=== PATIENT | female | born 1945 | race African-American/Black ===

== ENCOUNTER 2016-11-21 19:05 | Emergency (ER) | payer OTHER ==
[~2016-11-21] VITALS: Ht 157.5 cm; Wt 77.1 kg
--- NOTE | ~2016-11-21 | EKG ---
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 : 1945 Requested By: Mirna Baird Order Number: [id number] MD: Benjamín Roberts Measurements Intervals [place] Rate: 61 P: 35 [place]: 187 QRS: 18 QRSD: 88 T: 69 QT: 437 QTc: 441 Interpretive Statements Sinus rhythm Nonspecific T wave abnormality Compared to ECG 06/19/2016 03:42:26 No significant change was found Electronically Signed On 11-22-2016 8:09:31 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
[~2016-11-21 19:05] MED LIST: AMBIEN 10 MG TA10 MG PO; AMLODIPINE BESY10 MG PO; ASPIRIN EC81 M1 PO; ATIVAN0.5 M1 PO; ATIVAN0.5 MG PO; ATIVAN1 MG; ATIVAN1 MG PO; BYSTOLIC10 MG PO; CARAFATE 1 GM TA1 G1 PO; CARAFATE 1 GM TA1 GM PO; CARVEDILOL12.5 MG PO; CARVEDILOL25 MG PO; CLONIDINE HCL0.2 M2; CLONIDINE HCL0.2 M2 PO; CLONIDINE0.1 PO; GABAPENTIN100 MG PO; GLIPIZIDE ER10 MG; GLIPIZIDE ER10 MG PO; GLUCOPHAGE XR500 MG PO; GLUCOPHAGE500 MG; HUMALOG100 UNIT/1; INSULIN; IRON325 PO; LANTUS SUBQ; LIDOCAINE VISC100 M1 PO; LIPITOR20 MG PO; LIPITOR40 MG PO; LISINOPRIL20 MG PO; LISINOPRIL40 MG PO; LORAZEPAM 1 MG T1 M1 PO; LORAZEPAM 1 MG T1 MG PO; MEDROL DOSPAK21 TAB PO; METFORMIN; NAPROSYN250 MG PO; NEXIUM40 MG; NORCO 5-325 TA1 EACH PO; NORVASC2.5 MG PO; NOVOLOG100 UNIT/1; NOVOLOG100 UNIT/1 SQ; ONDANSETRON HCL4 M2 PO; PEPCID40 MG PO; PERCOCET 5-3251 EACH PO; PRILOSEC20 MG PO; PRILOSEC40 MG PO; PROTONIX40 M1 PO; PROTONIX40 MG PO; ULTRAM 50MG TAB50 MG PO; VITAMIN D32000 UNI1 PO; VITAMIN D400 UNI1 PO; XANAX 0.25 MG0.25 MG PO; XANAX 0.5 MG0.5 M1 PO; XANAX1 MG PO; ZANTAC 150MG T150 M1 PO; ZOFRAN ODT4 MG PO
[2016-11-21] MEDS ORDERED: PEPCID20 MG PO (19:51)
[2016-11-21] MEDS ORDERED: CARAFATE 1 GM TA1 G1 PO (19:51)
[2016-11-21] MEDS ORDERED: NEURONTIN 300300 M1 PO (19:51)
== END 2016-11-21 20:35 | disposition home or self-care (01) ==
LOC: ER 19:05
DX: E11.40 Type 2 diabetes mellitus with diabetic neuropathy, unspecified (principal); G89.29 Other chronic pain; R12 Heartburn; I10 Essential (primary) hypertension; Z90.49 Acquired absence of other specified parts of digestive tract; Z88.5 Allergy status to narcotic agent; Z91.013 Allergy to seafood

== ENCOUNTER 2017-02-12 20:54 | Emergency (ER) | payer OTHER ==
[~2017-02-12] VITALS: Ht 154.9 cm; Wt 79.4 kg
--- NOTE | ~2017-02-12 | EKG ---
[address] [address] ELECTROCARDIOGRAM REPORT Name: MOLLY RODRIGUEZ Room #: DEP [facility]#: [id number] Admission: 02/12/17 Attend Phys: Discharge: 02/12/17 Date of : 41 Report #: [id number] THIS REPORT FOR: //name// [facility] ED Test Date: 2017-02-12 Test Time: 21:53:29 Pat Name: MOLLY RODRIGUEZ Department: Room: Gender: F [place]: porfirio : 1945 Requested By: Clarita Hayes Order Number: [id number] MD: Meng Kelley Measurements Intervals [place] Rate: 78 P: -2 [place]: 181 QRS: 7 QRSD: 97 T: 45 QT: 310 QTc: 354 Interpretive Statements Sinus rhythm Borderline T abnormalities, lateral leads Compared to ECG 11/21/2016 19:37:39 No significant changes Electronically Signed On 02-13-2017 20:12:43 CDT by Meng Kelley [email or web address] <ELECTRONICALLY SIGNED> By: Meng Kelley MD 02/13/172011 52 52 Meng Kelley MD /MARIO
[~2017-02-12 20:54] MED LIST changes: +NEURONTIN 300300 M1 PO; +PEPCID20 MG PO
[2017-02-12 22:22] LABS: ABSOLUTE NEUTROPHILS 4.3 thou/uL (1.4-8.2); BASOPHILS 1.6 % (0.0-2.0); HEMATOCRIT 37.6 % (37.0-47.0); HEMOGLOBIN 12.5 gm/dL (12.0-15.0); LYMPHOCYTES 29.8 % (24.0-44.0); MCH 27.6 pg (26.0-34.0); MCHC 33.3 g/dL (28.0-37.0); MCV 82.8 fL (80.0-100.0); PLATELET COUNT 204 thou/uL (150-400); POLYS 55.6 % (36.0-66.0); RBC 4.54 mil/uL (4.20-5.00); RDW 15.2 % (10.5-14.5); WBC 7.8 thou/uL (4.0-11.0)
[2017-02-12 22:23] LABS: MANUAL DIFF NO
[2017-02-12 22:32] LABS: ANION GAP 11 mmol/L (7-16); BUN 15 mg/dL (7-18); CALCIUM 9.6 mg/dL (8.5-10.1); CHLORIDE 103 mmol/L (98-107); CO2 22 mmol/L (21-32); CREATININE 1.1 mg/dL (0.6-1.3); GLUCOSE 232 mg/dL (70-99); POTASSIUM 4.1 mmol/L (3.5-5.1); SODIUM 136 mmol/L (136-145)
[2017-02-12 22:36] LABS: ALBUMIN 3.8 g/dL (3.4-5.0); ALKALINE PHOSPHATASE 91 U/L (46-116); DIRECT BILIRUBIN < 0.1 mg/dL (<0.1-0.3); SGOT 20 U/L (15-37); SGPT 26 U/L (30-65); TOTAL BILIRUBIN 0.4 mg/dL (<0.1-1.0); TOTAL PROTEIN 7.7 g/dL (6.4-8.2)
[2017-02-12] MEDS ORDERED: PRILOSEC OTC20 MG PO (23:14)
== END 2017-02-12 23:24 | disposition home or self-care (01) ==
LOC: ER 20:54
PROVIDERS: Emergency Medicine
DX: K29.70 Gastritis, unspecified, without bleeding (principal); I10 Essential (primary) hypertension; E11.9 Type 2 diabetes mellitus without complications; E11.40 Type 2 diabetes mellitus with diabetic neuropathy, unspecified; Z90.49 Acquired absence of other specified parts of digestive tract; Z79.4 Long term (current) use of insulin; Z88.8 Allergy status to other drugs, medicaments and biological substances; Z88.5 Allergy status to narcotic agent; Z91.013 Allergy to seafood; Z87.891 Personal history of nicotine dependence

== ENCOUNTER 2017-06-16 22:47 | Emergency (ER) | payer OTHER ==
[~2017-06-16] VITALS: Ht 154.9 cm; Wt 78.9 kg
[~2017-06-16 22:47] MED LIST changes: +PRILOSEC OTC20 MG PO
[2017-06-16] MEDS ORDERED: PROTONIX40 M1 PO (22:57)
[2017-06-17] MEDS ORDERED: ATIVAN1 M1 PO (00:09)
[2017-06-17] MEDS ORDERED: PROTONIX40 M3 PO (00:09)
== END 2017-06-17 00:24 | disposition home or self-care (01) ==
LOC: ER 22:47
DX: Z91.19 Patient's noncompliance with other medical treatment and regimen (principal); K21.9 Gastro-esophageal reflux disease without esophagitis; R07.89 Other chest pain; I10 Essential (primary) hypertension; E11.9 Type 2 diabetes mellitus without complications; E11.40 Type 2 diabetes mellitus with diabetic neuropathy, unspecified; Z79.4 Long term (current) use of insulin; Z90.49 Acquired absence of other specified parts of digestive tract; Z98.890 Other specified postprocedural states; Z91.013 Allergy to seafood; Z88.5 Allergy status to narcotic agent; Z88.8 Allergy status to other drugs, medicaments and biological substances; Z87.891 Personal history of nicotine dependence

== ENCOUNTER 2017-12-17 01:10 | Emergency (ER) | payer OTHER ==
[~2017-12-17] VITALS: Ht 154.9 cm; Wt 90.7 kg
[~2017-12-17 01:10] MED LIST changes: +ATIVAN1 M1 PO; +PROTONIX40 M3 PO
[2017-12-17] MEDS ORDERED: ATIVAN1 MG PO (02:08)
[2017-12-17] MEDS ORDERED: NEURONTIN 300300 M1 PO (02:08)
[2017-12-17 03:12] VITALS: BP 119/70
== END 2017-12-17 03:10 | disposition home or self-care (01) ==
LOC: ER 01:10
DX: F41.9 Anxiety disorder, unspecified (principal); E11.40 Type 2 diabetes mellitus with diabetic neuropathy, unspecified; I10 Essential (primary) hypertension; Z87.891 Personal history of nicotine dependence; Z88.8 Allergy status to other drugs, medicaments and biological substances; Z88.6 Allergy status to analgesic agent; Z91.013 Allergy to seafood; Z79.4 Long term (current) use of insulin; Z90.49 Acquired absence of other specified parts of digestive tract

== ENCOUNTER 2018-04-05 17:46 | Emergency (ER) | payer OTHER ==
[~2018-04-05] VITALS: Ht 157.5 cm; Wt 81.7 kg
--- NOTE | ~2018-04-05 | EKG ---
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
[2018-04-05 18:20] LABS: ABSOLUTE NEUTROPHILS 3.6 thou/uL (1.4-8.2); EOSINOPHILS 4.4 % (0.0-3.0); HEMATOCRIT 39.7 % (37.0-47.0); LYMPHOCYTES 33.7 % (24.0-44.0); MCH 27.5 pg (26.0-34.0); MCHC 32.7 g/dL (28.0-37.0); MCV 84.1 fL (80.0-100.0); MONOCYTES 8.1 % (1.0-8.0); PLATELET COUNT 254 thou/uL (150-400); POLYS 51.8 % (36.0-66.0); RBC 4.72 mil/uL (4.20-5.00); RDW 14.9 % (10.5-14.5)
[2018-04-05] MEDS ORDERED: VITAMIN D2000 UNIT PO (18:22)
[2018-04-05 18:28] LABS: ANION GAP 13 mmol/L (7-16); BUN 11 mg/dL (7-18); CALCIUM 10.1 mg/dL (8.5-10.1); CHLORIDE 102 mmol/L (98-107); CO2 23 mmol/L (21-32); GLUCOSE 192 mg/dL (74-106); POTASSIUM 3.5 mmol/L (3.5-5.1); SODIUM 138 mmol/L (136-145)
[2018-04-05 18:36] LABS: ALBUMIN 4.3 g/dL (3.4-5.0); SGOT 22 U/L (15-37); SGPT 32 U/L (30-65); TOTAL BILIRUBIN 0.4 mg/dL (<0.1-1.0); TOTAL PROTEIN 8.5 g/dL (6.4-8.2); TROPONIN-I < 0.04 ng/mL (<0.06)
[2018-04-05 18:45] LABS: URINE BILIRUBIN NEGATIVE (Negative); URINE BLOOD NEGATIVE (Negative); URINE CLARITY SL CLOUDY; URINE COLOR YELLOW; URINE GLUCOSE-RANDOM* NEGATIVE (Negative); URINE KETONES NEGATIVE (Negative); URINE NITRITE-REFLEX NEGATIVE (Negative); URINE PROTEIN (DIPSTICK) NEGATIVE (Negative); URINE SPECIFIC GRAVITY <= 1.005 (1.005-1.035); URINE UROBILINOGEN 0.2 E.U./dl (0.2-1.0)
[2018-04-05 18:47] LABS: URINE LEUKOCYTES-REFLEX 1+ (Negative)
[2018-04-05 19:14] LABS: CASTS None Seen /LPF (None Seen); CRYSTALS None Seen /LPF (None Seen); SQUAMOUS >10 Many /LPF (0-3); URINE RBC 0-2 Rare /HPF (0-2); URINE WBC-REFLEX 0-5 Rare /HPF (0-5)
[2018-04-05 19:15] LABS: BACTERIA-REFLEX 1-9 Few /HPF (None Seen)
== END 2018-04-05 19:57 | disposition home or self-care (01) ==
LOC: ER 17:46
PROVIDERS: Physician Assistant
DX: E86.0 Dehydration (principal); F41.9 Anxiety disorder, unspecified; R53.1 Weakness; I10 Essential (primary) hypertension; E11.9 Type 2 diabetes mellitus without complications; Z90.49 Acquired absence of other specified parts of digestive tract; Z87.891 Personal history of nicotine dependence; Z88.5 Allergy status to narcotic agent; Z88.8 Allergy status to other drugs, medicaments and biological substances

== ENCOUNTER 2018-04-13 09:54 | Emergency (ER) | payer OTHER ==
[~2018-04-13] VITALS: Ht 154.9 cm; Wt 81.7 kg
--- NOTE | ~2018-04-13 | EKG ---
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 04/14/18 0737 103 103 Benjamín Roberts MD, FAC /EPI
[~2018-04-13 09:54] MED LIST changes: +VITAMIN D2000 UNIT PO
[2018-04-13] MEDS ORDERED: PROTONIX40 M2 PO (11:02)
== END 2018-04-13 11:18 | disposition home or self-care (01) ==
LOC: ER 09:54
DX: K21.9 Gastro-esophageal reflux disease without esophagitis (principal); I10 Essential (primary) hypertension; E11.9 Type 2 diabetes mellitus without complications; Z90.49 Acquired absence of other specified parts of digestive tract; Z87.891 Personal history of nicotine dependence; Z88.5 Allergy status to narcotic agent

== ENCOUNTER 2018-05-05 11:33 | Emergency (ER) | payer OTHER ==
[~2018-05-05] VITALS: Ht 154.9 cm; Wt 77.1 kg
--- NOTE | ~2018-05-05 | EKG ---
[address] [employer] [address] ELECTROCARDIOGRAM REPORT Name: MOLLY RODRIGUEZ Room #: DEP [facility]#: [id number] Admission: 05/05/18 Attend Phys: Discharge: 05/05/18 Date of : 41 Report #: [id number] THIS REPORT FOR: //name// 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: : 1945 Requested By: Stacey Webster Order Number: [id number] MD: Benjamín Roberts Measurements Intervals [place] Rate: 77 P: 6 [place]: 184 QRS: 3 QRSD: 95 T: 28 QT: 374 QTc: 424 Interpretive Statements Sinus rhythm Borderline T wave abnormalities Compared to ECG 04/13/2018 10:32:40 Sinus bradycardia no longer present Electronically Signed On 05-05-2018 16:33:39 CDT by Benjamín Roberts [email or web address] <ELECTRONICALLY SIGNED> By: Benjamín Roberts MD, [facility] 05/05/18 1633 1143 1143 Benjamín Roberts MD, FACC /EPI
[~2018-05-05 11:33] MED LIST changes: +PROTONIX40 M2 PO
[2018-05-05 12:34] LABS: ABSOLUTE NEUTROPHILS 3.7 thou/uL (1.4-8.2); BASOPHILS 1.1 % (0.0-2.0); EOSINOPHILS 2.9 % (0.0-3.0); HEMATOCRIT 40.1 % (37.0-47.0); LYMPHOCYTES 35.7 % (24.0-44.0); MCH 27.3 pg (26.0-34.0); MCHC 32.4 g/dL (28.0-37.0); MCV 84.3 fL (80.0-100.0); MONOCYTES 7.2 % (1.0-8.0); PLATELET COUNT 255 thou/uL (150-400); POLYS 53.1 % (36.0-66.0); RBC 4.76 mil/uL (4.20-5.00); RDW 14.4 % (10.5-14.5)
[2018-05-05 12:42] LABS: ANION GAP 11 mmol/L (7-16); BUN 5 mg/dL (7-18); CALCIUM 9.9 mg/dL (8.5-10.1); CHLORIDE 105 mmol/L (98-107); CO2 23 mmol/L (21-32); CREATININE 0.7 mg/dL (0.6-1.0); GLUCOSE 129 mg/dL (74-106); POTASSIUM 3.4 mmol/L (3.5-5.1); SODIUM 139 mmol/L (136-145)
[2018-05-05 12:50] LABS: LIPASE 157 U/L (73-393); SGOT 25 U/L (15-37); SGPT 32 U/L (30-65); TOTAL BILIRUBIN 0.3 mg/dL (<0.1-1.0); TROPONIN-I <0.06 ng/mL (<0.06)
[2018-05-05] MEDS ORDERED: CARAFATE 1 GM TA1 G1 PO (13:32)
== END 2018-05-05 13:53 | disposition home or self-care (01) ==
LOC: ER 11:33
PROVIDERS: Nurse Practitioner Family
DX: R12 Heartburn (principal); F41.9 Anxiety disorder, unspecified; I10 Essential (primary) hypertension; E11.9 Type 2 diabetes mellitus without complications; K21.9 Gastro-esophageal reflux disease without esophagitis; Z90.49 Acquired absence of other specified parts of digestive tract; Z88.5 Allergy status to narcotic agent

== ENCOUNTER 2018-05-18 13:15 | Emergency (ER) | payer OTHER ==
[~2018-05-18] VITALS: Ht 154.9 cm; Wt 78.0 kg
--- NOTE | ~2018-05-18 | EKG ---
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: : 1945 Requested By: Pineda Donovan Order Number: [id number] MD: Benjamín Roberts Measurements Intervals [place] Rate: 77 P: 4 [place]: 176 QRS: 2 QRSD: 88 T: 46 QT: 386 QTc: 437 Interpretive Statements Sinus rhythm Nonspecific T wave abnormality Compared to ECG 05/05/2018 11:43:43 No significant change was found Electronically Signed On 05-18-2018 17:21:54 CDT by Benjamín Roberts [email or web address] <ELECTRONICALLY SIGNED> By: Benjamín Roberts MD, [facility] 05/18/18 1721 1339 1339 Benjamín Roberts MD, FACC /EPI
[2018-05-18 13:40] LABS: ABSOLUTE NEUTROPHILS 4.3 thou/uL (1.4-8.2); BASOPHILS 1.3 % (0.0-2.0); EOSINOPHILS 2.3 % (0.0-3.0); HEMATOCRIT 40.2 % (37.0-47.0); HEMOGLOBIN 13.6 gm/dL (12.0-15.0); LYMPHOCYTES 33.7 % (24.0-44.0); MCH 27.4 pg (26.0-34.0); MCHC 33.8 g/dL (28.0-37.0); MCV 81.2 fL (80.0-100.0); MONOCYTES 7.1 % (1.0-8.0); PLATELET COUNT 236 thou/uL (150-400); POLYS 55.6 % (36.0-66.0); RBC 4.95 mil/uL (4.20-5.00); RDW 14.4 % (10.5-14.5); WBC 7.7 thou/uL (4.0-11.0)
[2018-05-18 13:48] LABS: ANION GAP 11 mmol/L (7-16); BUN 9 mg/dL (7-18); CALCIUM 10.2 mg/dL (8.5-10.1); CHLORIDE 103 mmol/L (98-107); CO2 25 mmol/L (21-32); GLUCOSE 161 mg/dL (74-106); POTASSIUM 3.3 mmol/L (3.5-5.1); SODIUM 139 mmol/L (136-145)
[2018-05-18 13:56] LABS: ALBUMIN 4.1 g/dL (3.4-5.0); SGOT 23 U/L (15-37); SGPT 36 U/L (30-65); TOTAL BILIRUBIN 0.3 mg/dL (<0.1-1.0); TOTAL PROTEIN 8.7 g/dL (6.4-8.2); TROPONIN-I <0.06 ng/mL (<0.06)
[2018-05-18] MEDS ORDERED: ZANTAC 150MG T150 MG PO (14:52)
== END 2018-05-18 15:05 | disposition home or self-care (01) ==
LOC: ER 13:15
PROVIDERS: Emergency Medicine
DX: I10 Essential (primary) hypertension (principal); K21.9 Gastro-esophageal reflux disease without esophagitis; F41.9 Anxiety disorder, unspecified; E11.9 Type 2 diabetes mellitus without complications; G62.9 Polyneuropathy, unspecified; Z79.4 Long term (current) use of insulin; Z87.891 Personal history of nicotine dependence; Z88.5 Allergy status to narcotic agent; Z91.013 Allergy to seafood; Z88.8 Allergy status to other drugs, medicaments and biological substances

== ENCOUNTER 2018-05-25 14:54 | Emergency (ER) | payer OTHER ==
[~2018-05-25] VITALS: Ht 154.9 cm; Wt 79.4 kg
--- NOTE | ~2018-05-25 | EKG ---
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: [facility] : 1945 Requested By: Modesto Grimes Order Number: [id number] MD: Benjamín Roberts Measurements Intervals [place] Rate: 65 P: 33 [place]: 163 QRS: 12 QRSD: 95 T: 58 QT: 404 QTc: 421 Interpretive Statements Sinus rhythm Nonspecific ST segment abnormality Compared to ECG 05/18/2018 13:39:34 No significant change was found Electronically Signed On 05-26-2018 8:39:34 CDT by Benjamín Roberts [email or web address] <ELECTRONICALLY SIGNED> By: Benjamín Roberts MD, [facility] 05/26/18 0839 1501 1501 Benjamín Roberts MD, FACC /EPI
[~2018-05-25 14:54] MED LIST changes: +ZANTAC 150MG T150 MG PO
== END 2018-05-25 16:21 | disposition home or self-care (01) ==
LOC: ER 14:54
DX: K21.9 Gastro-esophageal reflux disease without esophagitis (principal); E11.9 Type 2 diabetes mellitus without complications; M19.90 Unspecified osteoarthritis, unspecified site; I10 Essential (primary) hypertension; G62.9 Polyneuropathy, unspecified; Z90.49 Acquired absence of other specified parts of digestive tract; Z79.4 Long term (current) use of insulin; Z88.5 Allergy status to narcotic agent; Z91.013 Allergy to seafood; Z88.8 Allergy status to other drugs, medicaments and biological substances; Z87.891 Personal history of nicotine dependence

== ENCOUNTER 2019-04-02 18:23 | Emergency (ER) | payer OTHER ==
[~2019-04-02] VITALS: Ht 154.9 cm; Wt 79.4 kg
[2019-04-02 20:05] LABS: HEMATOCRIT 40.5 % (37.0-47.0); HEMOGLOBIN 13.3 gm/dL (12.0-15.0); MCH 27.8 pg (26.0-34.0); MCHC 32.8 g/dL (28.0-37.0); MCV 84.7 fL (80.0-100.0); RBC 4.78 mil/uL (4.20-5.00); RDW 15.1 % (10.5-14.5); WBC 6.2 thou/uL (4.0-11.0)
[2019-04-02 20:24] LABS: CALCIUM 9.5 mg/dL (8.5-10.1); POTASSIUM 3.9 mmol/L (3.5-5.1)
[2019-04-02] MEDS ORDERED: ATIVAN1 MG PO (20:34)
[2019-04-02 21:02] VITALS: BP 153/85
--- NOTE | 2019-04-03 08:01 | EKG ---
[address] [place] [address] ELECTROCARDIOGRAM REPORT Name: MOLLY RODRIGUEZ Room #: DEP [facility]#: [id number] ������������������ Admission: 04/02/19 ������������������ Attend Phys: Discharge: 04/02/19 ������������������ Date of : 41 Report #: [id number] ����������������������������������������������������������������� [id number] THIS REPORT FOR: //name// [facility] ED Test Date: 2019-04-02 Test Time: 20:36:48 Pat Name: MOLLY RODRIGUEZ Department: Room: Gender: F Director Of Assisted Living: Jeanette : 1945 Requested By: Clarita Hayes Order Number: [id number] MD: Meng Kelley Measurements Intervals [place] Rate: 68 P: 27 [place]: 195 QRS: 1 QRSD: 84 T: 101 QT: 386 QTc: 411 Interpretive Statements Sinus rhythm LVH by voltage Nonspecific T abnormalities, lateral leads Compared to ECG 05/25/2018 15:01:01 Left ventricular hypertrophy now present T-wave abnormality now present ST (T wave) deviation no longer present Electronically Signed On 04-03-2019 8:01:02 CDT by Meng Kelley [email or web address] ��������������������������������������������� <ELECTRONICALLY SIGNED> ���������������������������������������� By: Meng Kelley MD ��������������������������������������������� 04/03/19800 35 35 Meng Kelley MD /EPI
== END 2019-04-02 21:03 | disposition home or self-care (01) ==
LOC: ER 18:23
PROVIDERS: Emergency Medicine
DX: F41.1 Generalized anxiety disorder (principal); E11.40 Type 2 diabetes mellitus with diabetic neuropathy, unspecified; K21.9 Gastro-esophageal reflux disease without esophagitis; I10 Essential (primary) hypertension; Z87.891 Personal history of nicotine dependence; Z88.8 Allergy status to other drugs, medicaments and biological substances; Z88.5 Allergy status to narcotic agent; Z91.013 Allergy to seafood; Z90.49 Acquired absence of other specified parts of digestive tract

== ENCOUNTER 2019-05-04 09:56 | Emergency (ER) | payer OTHER ==
[~2019-05-04] VITALS: Ht 154.9 cm; Wt 79.4 kg
[2019-05-04 11:37] LABS: ABSOLUTE NEUTROPHILS 3.5 thou/uL (1.4-8.2); BASOPHILS 1.3 % (0.0-2.0); EOSINOPHILS 3.8 % (0.0-3.0); HEMATOCRIT 45.3 % (37.0-47.0); HEMOGLOBIN 14.9 gm/dL (12.0-15.0); LYMPHOCYTES 28.5 % (24.0-44.0); MCH 27.9 pg (26.0-34.0); MCHC 32.9 g/dL (28.0-37.0); MCV 84.7 fL (80.0-100.0); MONOCYTES 8.2 % (1.0-8.0); PLATELET COUNT 232 thou/uL (150-400); POLYS 58.2 % (36.0-66.0); RBC 5.35 mil/uL (4.20-5.00); RDW 14.7 % (10.5-14.5)
[2019-05-04 11:47] LABS: ANION GAP 11 mmol/L (7-16); BUN 16 mg/dL (7-18); CALCIUM 10.1 mg/dL (8.5-10.1); CHLORIDE 104 mmol/L (98-107); CO2 24 mmol/L (21-32); GLUCOSE 129 mg/dL (74-106); POTASSIUM 4.2 mmol/L (3.5-5.1); SODIUM 139 mmol/L (136-145)
[2019-05-04 11:57] LABS: ALBUMIN 4.4 g/dL (3.4-5.0); SGOT 25 U/L (15-37); SGPT 30 U/L (30-65); TOTAL BILIRUBIN 0.4 mg/dL (<0.1-1.0); TOTAL PROTEIN 9.1 g/dL (6.4-8.2); TROPONIN-I <0.06 ng/mL (<0.06)
[2019-05-04] MEDS ORDERED: ATIVAN1 MG PO (12:34)
[2019-05-04 13:02] VITALS: BP 146/68
--- NOTE | 2019-05-07 08:55 | EKG ---
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: NIKA : 1945 Requested By: Jossy Giang Order Number: [id number] MD: Benjamín Roberts Measurements Intervals [place] Rate: 68 P: -7 [place]: 190 QRS: 7 QRSD: 88 T: 65 QT: 397 QTc: 423 Interpretive Statements Sinus rhythm LVH by voltage Baseline wander in lead(s) V1 Compared to ECG 04/02/2019 20:36:48 T-wave abnormality no longer present Electronically Signed On 05-07-2019 8:55:07 CDT by Benjamín Roberts [email or web address] ��������������������������������������������� <ELECTRONICALLY SIGNED> ���������������������������������������� By: Benjamín Roberts MD, [facility] ��������������������������������������������� 05/07/19 0855 1044 1044 Benjamín Roberts MD, [facility] /EPI
== END 2019-05-04 13:03 | disposition home or self-care (01) ==
LOC: ER 09:56
PROVIDERS: Physician Assistant
DX: F41.9 Anxiety disorder, unspecified (principal); R42 Dizziness and giddiness; I10 Essential (primary) hypertension; E11.40 Type 2 diabetes mellitus with diabetic neuropathy, unspecified; K21.9 Gastro-esophageal reflux disease without esophagitis; Z90.49 Acquired absence of other specified parts of digestive tract; Z87.891 Personal history of nicotine dependence; Z88.5 Allergy status to narcotic agent; Z91.013 Allergy to seafood

== ENCOUNTER 2019-06-10 19:36 | Emergency (ER) | payer OTHER ==
[~2019-06-10] VITALS: Ht 154.9 cm; Wt 79.4 kg
[2019-06-10 20:45] LABS: ABSOLUTE NEUTROPHILS 3.2 thou/uL (1.4-8.2); BASOPHILS 1.4 % (0.0-2.0); EOSINOPHILS 3.4 % (0.0-3.0); HEMATOCRIT 43.3 % (37.0-47.0); HEMOGLOBIN 13.9 gm/dL (12.0-15.0); MCH 27.3 pg (26.0-34.0); MCHC 32.1 g/dL (28.0-37.0); MCV 85.2 fL (80.0-100.0); MONOCYTES 8.3 % (1.0-8.0); PLATELET COUNT 190 thou/uL (150-400); POLYS 49.9 % (36.0-66.0); RBC 5.08 mil/uL (4.20-5.00); RDW 14.6 % (10.5-14.5); WBC 6.5 thou/uL (4.0-11.0)
[2019-06-10 21:02] LABS: ANION GAP 10 mmol/L (7-16); BUN 13 mg/dL (7-18); CALCIUM 9.9 mg/dL (8.5-10.1); CHLORIDE 106 mmol/L (98-107); CO2 24 mmol/L (21-32); CREATININE 0.9 mg/dL (0.6-1.0); GLUCOSE 116 mg/dL (74-106); POTASSIUM 3.9 mmol/L (3.5-5.1); SODIUM 140 mmol/L (136-145)
[2019-06-10 21:12] LABS: MAGNESIUM 2.2 mg/dL (1.8-2.4); TROPONIN-I <0.06 ng/mL (<0.06)
[2019-06-11 00:50] VITALS: BP 153/87
--- NOTE | 2019-06-12 07:50 | EKG ---
[place] [address] 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: : 1945 Requested By: Bart Armenta Order Number: [id number] MD: Benjamín Roberts Measurements Intervals [place] Rate: 59 P: 26 MT: 174 QRS: 9 QRSD: 93 T: 72 QT: 416 QTc: 413 Interpretive Statements Sinus bradycardia Otherwise no significant abnormality Baseline wander in lead(s) V1 Compared to ECG 05/04/2019 10:44:16 No significant changes Electronically Signed On 06-12-2019 7:50:38 CDT by Benjamín Roberts [email or web address] ��������������������������������������������� <ELECTRONICALLY SIGNED> ���������������������������������������� By: Benjamín Roberts MD, [facility] ��������������������������������������������� 06/12/19 0750 03 03 Benjamín Roberts MD, FACC /EPI
== END 2019-06-11 00:50 | disposition home or self-care (01) ==
LOC: ER 19:36
PROVIDERS: Emergency Medicine
DX: N95.1 Menopausal and female climacteric states (principal); F41.9 Anxiety disorder, unspecified; I10 Essential (primary) hypertension; E11.40 Type 2 diabetes mellitus with diabetic neuropathy, unspecified; K21.9 Gastro-esophageal reflux disease without esophagitis; Z79.4 Long term (current) use of insulin; Z90.49 Acquired absence of other specified parts of digestive tract; Z91.013 Allergy to seafood; Z88.6 Allergy status to analgesic agent; Z87.891 Personal history of nicotine dependence

== ENCOUNTER 2019-07-06 17:13 | Emergency (ER) | payer OTHER ==
[~2019-07-06] VITALS: Ht 154.9 cm; Wt 77.1 kg
[2019-07-06] MEDS ORDERED: CLONIDINE0.1 PO (17:20)
[2019-07-06] MEDS ORDERED: LANTUS100 UNIT/M SUBQ (17:20)
[2019-07-06] MEDS ORDERED: METFORMIN HCL500 MG PO (17:20)
[2019-07-06] MEDS ORDERED: LIPITOR 20 MG T20 M1 PO (17:21)
[2019-07-06 18:08] LABS: ABSOLUTE NEUTROPHILS 3.6 thou/uL (1.4-8.2); BASOPHILS 1.3 % (0.0-2.0); EOSINOPHILS 3.5 % (0.0-3.0); HEMATOCRIT 43.8 % (37.0-47.0); HEMOGLOBIN 14.4 gm/dL (12.0-15.0); LYMPHOCYTES 32.5 % (24.0-44.0); MCH 27.2 pg (26.0-34.0); MCHC 32.8 g/dL (28.0-37.0); MONOCYTES 8.6 % (1.0-8.0); PLATELET COUNT 212 thou/uL (150-400); POLYS 54.1 % (36.0-66.0); RBC 5.28 mil/uL (4.20-5.00); RDW 14.6 % (10.5-14.5); WBC 6.8 thou/uL (4.0-11.0)
[2019-07-06 18:18] LABS: ANION GAP 12 mmol/L (7-16); BUN 16 mg/dL (7-18); CALCIUM 9.9 mg/dL (8.5-10.1); CHLORIDE 104 mmol/L (98-107); CO2 21 mmol/L (21-32); GLUCOSE 139 mg/dL (74-106); POTASSIUM 3.7 mmol/L (3.5-5.1); SODIUM 137 mmol/L (136-145)
[2019-07-06 18:28] LABS: ALBUMIN 3.9 g/dL (3.4-5.0); MAGNESIUM 2.1 mg/dL (1.8-2.4); SGOT 16 U/L (15-37); SGPT 25 U/L (30-65); TOTAL BILIRUBIN 0.3 mg/dL (<0.1-1.0); TOTAL PROTEIN 8.5 g/dL (6.4-8.2); TROPONIN-I <0.06 ng/mL (<0.06)
[2019-07-06 18:59] LABS: URINE BILIRUBIN NEGATIVE (Negative); URINE BLOOD NEGATIVE (Negative); URINE CLARITY CLEAR; URINE COLOR YELLOW; URINE GLUCOSE-RANDOM* 3+ (Negative); URINE KETONES NEGATIVE (Negative); URINE LEUKOCYTES-REFLEX NEGATIVE (Negative); URINE NITRITE-REFLEX NEGATIVE (Negative); URINE PROTEIN (DIPSTICK) NEGATIVE (Negative); URINE SPECIFIC GRAVITY <= 1.005 (1.005-1.035); URINE UROBILINOGEN 0.2 E.U./dl (0.2-1.0)
[2019-07-06] MEDS ORDERED: ATIVAN1 MG PO (19:36)
[2019-07-06 20:21] VITALS: BP 146/66
--- NOTE | 2019-07-08 11:40 | EKG ---
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: : 1945 Requested By: Darci Abreu Order Number: [id number] MD: Meng Kelley Measurements Intervals [place] Rate: 72 P: 3 [place]: 167 QRS: 8 QRSD: 94 T: 114 QT: 371 QTc: 406 Interpretive Statements Sinus rhythm Nonspecific T abnormalities, lateral leads Compared to ECG 06/10/2019 20:04:27 T-wave abnormality now present Sinus bradycardia no longer present Electronically Signed On 07-08-2019 11:40:07 CDT by Meng Kelley [email or web address] <ELECTRONICALLY SIGNED> By: Meng Kelley MD 07/08/19 1140 16 16 Meng Kelley MD /MARIO
== END 2019-07-06 21:20 | disposition home or self-care (01) ==
LOC: ER 17:13
PROVIDERS: Emergency Medicine
DX: F41.9 Anxiety disorder, unspecified (principal); R42 Dizziness and giddiness; J98.11 Atelectasis; R53.1 Weakness; I10 Essential (primary) hypertension; K21.9 Gastro-esophageal reflux disease without esophagitis; E11.40 Type 2 diabetes mellitus with diabetic neuropathy, unspecified; Z79.4 Long term (current) use of insulin; Z90.49 Acquired absence of other specified parts of digestive tract; Z88.8 Allergy status to other drugs, medicaments and biological substances; Z88.6 Allergy status to analgesic agent; Z91.013 Allergy to seafood; Z87.891 Personal history of nicotine dependence

== ENCOUNTER 2019-08-16 11:11 | Emergency (ER) | payer OTHER ==
[~2019-08-16] VITALS: Ht 154.9 cm; Wt 76.7 kg
[~2019-08-16 11:11] MED LIST changes: +LANTUS100 UNIT/M SUBQ; +LIPITOR 20 MG T20 M1 PO; +METFORMIN HCL500 MG PO
[2019-08-16 12:02] LABS: ABSOLUTE NEUTROPHILS 4.6 thou/uL (1.4-8.2); BASOPHILS 1.1 % (0.0-2.0); EOSINOPHILS 3.1 % (0.0-3.0); HEMATOCRIT 42.1 % (37.0-47.0); HEMOGLOBIN 13.5 gm/dL (12.0-15.0); LYMPHOCYTES 26.7 % (24.0-44.0); MCH 27.1 pg (26.0-34.0); MCHC 32.2 g/dL (28.0-37.0); MCV 84.2 fL (80.0-100.0); MONOCYTES 7.5 % (1.0-8.0); PLATELET COUNT 197 thou/uL (150-400); POLYS 61.6 % (36.0-66.0); RDW 16.1 % (10.5-14.5); WBC 7.5 thou/uL (4.0-11.0)
[2019-08-16 12:22] LABS: ALBUMIN 3.8 g/dL (3.4-5.0); ANION GAP 10 mmol/L (7-16); BUN 22 mg/dL (7-18); CALCIUM 9.9 mg/dL (8.5-10.1); CHLORIDE 104 mmol/L (98-107); CO2 26 mmol/L (21-32); GLUCOSE 139 mg/dL (74-106); LIPASE 274 U/L (73-393); SGOT 17 U/L (15-37); SGPT 20 U/L (30-65); SODIUM 140 mmol/L (136-145); TOTAL BILIRUBIN 0.3 mg/dL (<0.1-1.0); TOTAL PROTEIN 7.6 g/dL (6.4-8.2); TROPONIN-I <0.06 ng/mL (<0.06)
[2019-08-16 12:54] LABS: URINE BILIRUBIN NEGATIVE (Negative); URINE BLOOD NEGATIVE (Negative); URINE CLARITY CLEAR; URINE COLOR YELLOW; URINE GLUCOSE-RANDOM* 3+ (Negative); URINE KETONES NEGATIVE (Negative); URINE LEUKOCYTES-REFLEX NEGATIVE (Negative); URINE NITRITE-REFLEX NEGATIVE (Negative); URINE PROTEIN (DIPSTICK) NEGATIVE (Negative); URINE SPECIFIC GRAVITY <= 1.005 (1.005-1.035); URINE UROBILINOGEN 0.2 E.U./dl (0.2-1.0)
--- NOTE | 2019-08-16 12:55 | EKG ---
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
[2019-08-16] MEDS ORDERED: ATIVAN0.5 M1 PO (13:07)
[2019-08-16 13:12] VITALS: BP 137/101
== END 2019-08-16 13:36 | disposition home or self-care (01) ==
LOC: ER 11:11
PROVIDERS: Nurse Practitioner Family
DX: F41.9 Anxiety disorder, unspecified (principal); R42 Dizziness and giddiness; R53.1 Weakness; I10 Essential (primary) hypertension; E11.40 Type 2 diabetes mellitus with diabetic neuropathy, unspecified; K21.9 Gastro-esophageal reflux disease without esophagitis; Z90.49 Acquired absence of other specified parts of digestive tract; Z88.5 Allergy status to narcotic agent; Z91.013 Allergy to seafood; Z88.2 Allergy status to sulfonamides; Z87.891 Personal history of nicotine dependence; Z79.4 Long term (current) use of insulin

== ENCOUNTER 2019-08-23 02:44 | Emergency (ER) | payer OTHER ==
[~2019-08-23] VITALS: Ht 154.9 cm; Wt 77.1 kg
[2019-08-23 03:11] LABS: ABSOLUTE NEUTROPHILS 3.4 thou/uL (1.4-8.2); BASOPHILS 0.9 % (0.0-2.0); EOSINOPHILS 3.5 % (0.0-3.0); HEMATOCRIT 41.5 % (37.0-47.0); HEMOGLOBIN 13.3 gm/dL (12.0-15.0); LYMPHOCYTES 37.2 % (24.0-44.0); MCH 27.1 pg (26.0-34.0); MCHC 32.1 g/dL (28.0-37.0); MCV 84.4 fL (80.0-100.0); MONOCYTES 11.7 % (1.0-8.0); PLATELET COUNT 203 thou/uL (150-400); POLYS 46.7 % (36.0-66.0); RBC 4.92 mil/uL (4.20-5.00); RDW 15.8 % (10.5-14.5); WBC 7.3 thou/uL (4.0-11.0)
[2019-08-23 03:31] LABS: ANION GAP 8 mmol/L (7-16); BUN 17 mg/dL (7-18); CALCIUM 9.3 mg/dL (8.5-10.1); CHLORIDE 103 mmol/L (98-107); CO2 26 mmol/L (21-32); CREATININE 1.1 mg/dL (0.6-1.0); GLUCOSE 177 mg/dL (74-106); SODIUM 137 mmol/L (136-145)
[2019-08-23 03:41] LABS: ALBUMIN 3.7 g/dL (3.4-5.0); SGOT 14 U/L (15-37); SGPT 21 U/L (30-65); TOTAL BILIRUBIN 0.2 mg/dL (<0.1-1.0); TOTAL PROTEIN 7.7 g/dL (6.4-8.2); TROPONIN-I <0.06 ng/mL (<0.06)
[2019-08-23] MEDS ORDERED: LORAZEPAM 0.50.5 MG PO (03:54)
[2019-08-23 04:09] VITALS: BP 172/71
--- NOTE | 2019-08-23 07:49 | EKG ---
[address] [place] [address] ELECTROCARDIOGRAM REPORT Name: MOLLY RODRIGUEZ [facility] [id number] Admission: 08/23/19 Attend Phys: Discharge: 08/23/19 Date of : 41 Report #: [id number] THIS REPORT FOR: //name// [facility] ED Test Date: 2019-08-23 Test Time: 03:14:44 Pat Name: MOLLY RODRIGUEZ Department: Room: Gender: F Child Welfare Specialist: SAM : 1945 Requested By: Piotr Daniel Order Number: [id number] MD: Benjamín Roberts Measurements Intervals [place] Rate: 62 P: 36 [place]: 182 QRS: 9 QRSD: 97 T: 47 QT: 396 QTc: 402 Interpretive Statements Sinus rhythm No significant abnormality Compared to ECG 08/16/2019 11:26:54 No significant change was found Electronically Signed On 08-23-2019 7:49:12 CDT by Benjamín Roberts [email or web address] <ELECTRONICALLY SIGNED> By: Benjamín Roberts MD, [facility] 08/23/19 0749 0314 0314 Benjamín Roberts MD, FACC /EPI
== END 2019-08-23 04:10 | disposition home or self-care (01) ==
LOC: ER 02:44
PROVIDERS: Emergency Medicine
DX: F41.9 Anxiety disorder, unspecified (principal); N95.1 Menopausal and female climacteric states; I10 Essential (primary) hypertension; K21.9 Gastro-esophageal reflux disease without esophagitis; E11.40 Type 2 diabetes mellitus with diabetic neuropathy, unspecified; Z60.2 Problems related to living alone; Z79.4 Long term (current) use of insulin; Z90.49 Acquired absence of other specified parts of digestive tract; Z87.891 Personal history of nicotine dependence; Z91.013 Allergy to seafood; Z88.6 Allergy status to analgesic agent; Z88.8 Allergy status to other drugs, medicaments and biological substances